=== PATIENT | male | born 1980 | race Caucasian/White ===

== ENCOUNTER 2017-07-14 17:06 | Emergency (ER) | payer SELFPAY ==
[~2017-07-14] VITALS: Ht 175.3 cm; Wt 98.9 kg
[~2017-07-14 17:06] MED LIST: BENADRYL50 MG PO; CHLORTABS4 MG PO; CIPRO500 MG PO; DELTASONE20 M1 PO; FLAGYL500 MG PO; FLEXERIL10 MG PO; HYOSCYAMINE0.125 M1 SL; LORTAB 5-325 M1 EACH PO; NAPROXEN500 MG PO; NEXIUM40 MG PO; PERCOCET 5/31 TABLET PO; PREDNISONE10 M1 PO; PREDNISONE10 MG PO; PRILOSEC40 MG PO; PROTONIX20 MG; PROTONIX40 MG PO; TRAMADOL HCL50 MG PO; ZOFRAN4 MG PO
[2017-07-14 17:13] VITALS: BP 153/110
[2017-07-14 17:28] LABS: HEMATOCRIT 43.1 % (38.0-50.0); HEMOGLOBIN 15.3 G/DL (12.5-16.6); MCH 30.2 PG (29.0-34.0); MCHC 35.5 G/DL (30.0-36.0); PLATELET COUNT 270 K/uL (156-360); RBC DIS.WIDTH-CV 12.4 % (11.8-14.6); RBC DIS.WIDTH-SD 37.8 % (39-53); RED BLOOD COUNT 5.07 M/uL (4.00-5.50); WHITE BLOOD COUNT 8.4 K/uL (4.1-10.2)
[2017-07-14 17:36] LABS: ALBUMIN 4.6 g/dL (3.2-4.8)
[2017-07-14 17:37] LABS: CHLORIDE 104 mEq/L (99-109); POTASSIUM 3.7 mEq/L (3.7-5.4); SODIUM 140 mEq/L (136-147)
[2017-07-14 17:38] LABS: APPEARANCE CLEAR ((CLEAR)); BILIRUBIN NEGATIVE; BLOOD NEGATIVE; COLOR YELLOW ((YELLOW)); GLUCOSE (STRIP) NEGATIVE; KETONES NEGATIVE; LEUKOCYTES NEGATIVE; NITRITE NEGATIVE; PROTEIN (STRIP) NEGATIVE; SPECIFIC GRAVITY 1.014 (1.000-1.030); UCUL ADDED? NO; UROBILINOGEN 0.2 MG/DL (0.2-1.0)
[2017-07-14 17:39] LABS: GLUCOSE 104 mg/dL (70-99); TOTAL PROTEIN 7.5 g/dL (6.4-8.3)
[2017-07-14 17:41] LABS: TOTAL BILIRUBIN 1.1 mg/dL (0.0-1.0)
[2017-07-14 17:42] LABS: ALKALINE PHOSPHATASE 90 IU/L (3-129)
[2017-07-14 17:43] LABS: GFR ESTIMATE (CALCULATED) > 59 mL/min/ (58.99-99999)
[2017-07-14 17:44] LABS: AST (GOT) 33 IU/L (2-34); UREA NITROGEN (BUN) 12 mg/dL (9-23)
[2017-07-14 17:46] LABS: ALT (GPT) 55 IU/L (3-49); LIPASE 24 U/L (1.0-51.0)
== END 2017-07-14 19:46 | disposition left against medical advice (07) ==
LOC: EME 17:06
DX: R11.0 Nausea (principal); R10.13 Epigastric pain; Z53.21 Procedure and treatment not carried out due to patient leaving prior to being seen by health care provider
CPT/HCPCS: 80053; 81003; 83690; 85027